=== PATIENT | female | born 1985 | race Two or more races ===

== ENCOUNTER → 2019-06-05 | Outpatient (REF) | payer OTHER ==
[2019-06-05 22:05] LABS: CHLAMYDIA DNA AMPLIFICATION POSITIVE (NEGATIVE); GC DNA AMPLIFICATION NEGATIVE (NEGATIVE)
== END ==
LOC: M SFHCLERA 10:26
PROVIDERS: ATTEND Nurse Practitioner Family
DX: R10.9 Unspecified abdominal pain (principal)

== ENCOUNTER → 2019-06-29 | Outpatient (REF) | payer OTHER ==
[2019-06-29 22:00] LABS: CHLAMYDIA DNA AMPLIFICATION NEGATIVE (NEGATIVE); GC DNA AMPLIFICATION NEGATIVE (NEGATIVE)
== END ==
LOC: M SFHCLERA 10:56
PROVIDERS: ATTEND Nurse Practitioner Family
DX: Z86.19 Personal history of other infectious and parasitic diseases (principal)

== ENCOUNTER 2021-03-26 15:25 | Emergency (ER) | payer OTHER ==
[~2021-03-26] VITALS: Ht 170.2 cm; Wt 99.5 kg
[2021-03-26 15:27] VITALS: BP 125/84
[2021-03-26] MEDS ORDERED: CEPH500C PO (20:19)
== END 2021-03-26 20:29 | disposition home or self-care (01) ==
LOC: M ED 15:25
DX: T81.31XA Disruption of external operation (surgical) wound, not elsewhere classified, initial encounter (principal); Y74.3 Surgical instruments, materials and general hospital and personal-use devices (including sutures) associated with adverse incidents; Z79.2 Long term (current) use of antibiotics